=== PATIENT | female | born 1980 | race Hispanic/Latino ===

== ENCOUNTER 2018-03-28 10:36 | Outpatient (CLI) | payer OTHER ==
--- NOTE | 2018-03-28 12:20 | ULT ---
ABDOMINAL ULTRASOUND: 03/28/2018 PROVIDED CLINICAL HISTORY: Abdominal distention. FINDINGS: The visualized abdominal aorta, IVC, and pancreas appear normal. The liver is enlarged, measuring approximately 22 cm in craniocaudal dimension at the right hepatic l obe. There is a coarsened and echogenic appearance to the hepatic parenchyma, compatible with fatty infiltration. There is no evidence for hepatic mass or intrahepatic biliary ductal dilatation. The common duct is not dilated. The gallbladder demonstrates no stones, wall thickening, or pericholecys tic fluid. The kidneys demonstrate no hydronephrosis or mass. The spleen is nonenlarged and demonstrates no focal abnormality. There is a circumscribed, mass-like area of altered echogenicity present in the region of the splenic hilum, measuring at least 9.7 cm. This is incompletely characterized on the basis of this study. IMPRESSION: 1. 9.7 cm perisplenic mass, incompletely characterized on the basis of this study. Correlation with CT abdomen is recommended for further evaluation. 2. Fatty infiltration of the liver and hepatomegaly. CODE T POS: OFF
== END 2018-03-28 10:37 | disposition home or self-care (01) ==
LOC: BICULT 10:36
PROVIDERS: ATTEND Internal Medicine Gastroenterology
DX: R14.0 Abdominal distension (gaseous) (principal); R63.5 Abnormal weight gain; K76.0 Fatty (change of) liver, not elsewhere classified; R16.0 Hepatomegaly, not elsewhere classified; D73.89 Other diseases of spleen
CPT/HCPCS: 76700